=== PATIENT | male | born 1970 | race Asian ===

== ENCOUNTER 2024-04-07 16:57 | Inpatient (IN) | payer OTHER ==
[~2024-04-07] VITALS: Ht 172.7 cm; Wt 77.0 kg
[2024-04-07] MEDS ORDERED: GLYB-145 PO (17:50)
[2024-04-07] MEDS ORDERED: AMLO-257 PO (17:50)
[2024-04-07] MEDS ORDERED: OLAN5TAB52 PO (17:50)
[2024-04-07] MEDS ORDERED: VENL-66 PO (17:50)
[2024-04-07 18:07] LABS: BASOPHILS % (AUTO) 0.3 % (0.0-2.0); EOSINOPHILS % (AUTO) 0.2 % (1.0-6.0); HEMATOCRIT 50.3 % (41-53); HEMOGLOBIN 16.6 g/dL (13.5-17.5); LYMPHOCYTES # (AUTO) 2.4 K/uL (1.0-4.8); MEAN CORPUSCULAR HEMOGLOBIN 30.7 pg (26.0-34.0); MEAN CORPUSCULAR VOLUME 93 fL (80-100); MONOCYTES # (AUTO) 0.5 K/uL (0.1-1.0); MONOCYTES % (AUTO) 6.6 % (2.0-9.0); NEUTROPHILS # (AUTO) 4.3 K/uL (1.8-7.7); NEUTROPHILS % (AUTO) 59.9 % (40.0-70.0); PLATELET COUNT (AUTO) 250 K/uL (150-450); RED BLOOD CELL COUNT(AUTO) 5.41 MIL/uL (4.50-5.90); RED CELL DISTRIBUTION WIDTH 13.3 % (11.5-14.5); WHITE BLOOD COUNT (AUTO) 7.2 K/uL (4.5-11.0)
[2024-04-07 18:11] LABS: COVID AG,FIA SOURCE NASAL SWAB
[2024-04-07 18:20] LABS: ANION GAP 10 mmol/L (8-16); CALCIUM, TOTAL 9.2 mg/dL (8.8-10.5); CARBON DIOXIDE 29 mmol/L (22-29); CHLORIDE 103 mmol/L (98-107); CREATININE 1.01 mg/dL (0.60-1.30); GLOMERULAR FILTR. RATE CALC > 60 mL/min (>60); GLUCOSE,RANDOM 133 mg/dL (70-110); POTASSIUM 4.5 mmol/L (3.5-5.1); SODIUM SERUM 142 mmol/L (136-145); UREA NITROGEN, BLOOD 25 mg/dL (7-18)
[2024-04-07 18:23] LABS: ALCOHOL, BLOOD (SERUM) < 3 mg/dL (0-10)
[2024-04-07] MEDS ORDERED: ONDANSETRON HCL 4 MG/2 ML VIAL IVP PRN (18:30)
[2024-04-07 18:51] LABS: SARS-COV2 (COVID) ANTIGEN,FIA Negative (Negative)
[2024-04-07] MEDS: AmLODIPine BESYLATE 5 MG TABLET PO SCH (20:09)
[2024-04-07] MEDS: DOCUSATE SODIUM 100 MG CAPSULE PO SCH (20:10)
[2024-04-07 21:21] VITALS: BP 144/80; PULSE 50; RESP 18; TEMP 98.2; O2SAT 96
[2024-04-07 21:55] LABS: GLUCOMETER DEV NAME(LOC) 6N.2B; GLUCOSE,POINT OF CARE 198 MG/DL (70-110)
[2024-04-07] MEDS: ZOLPIDEM TARTRATE 5 MG TABLET PO PRN (22:08)
[2024-04-07] MEDS: HEPARIN SODIUM,PORCINE 5,000 UNITS/ML VIAL SQ SCH (22:08)
[2024-04-08] MEDS: ZOLPIDEM TARTRATE 5 MG TABLET PO ONE (00:30)
[2024-04-08 02:16] LABS: ALCOHOL, URINE DRUG SCREEN NEGATIVE (NEGATIVE); AMPHET/METH SCREEN,URINE NEGATIVE (NEGATIVE); BARBITURATE SCREEN, URINE NEGATIVE (NEGATIVE); BENZODIAZEPINES SCREEN,URINE NEGATIVE (NEGATIVE); CANNABINOID SCREEN,URINE NEGATIVE (NEGATIVE); COCAINE SCREEN,URINE NEGATIVE (NEGATIVE); METHADONE SCREEN, URINE NEGATIVE (NEGATIVE); OPIATE SCREEN,URINE NEGATIVE (NEGATIVE); PHENCYCLIDINE SCREEN,URINE NEGATIVE (NEGATIVE)
[2024-04-08 05:24] VITALS: BP 139/90; PULSE 51; RESP 18; TEMP 97.8; O2SAT 97
[2024-04-08] MEDS: MAGNESIUM HYDROXIDE SUSPENSION 30 ML UDCUP PO PRN (05:26)
[2024-04-08 08:25] VITALS: BP 135/74; PULSE 78; RESP 18; TEMP 98.2; O2SAT 100
[2024-04-08] MEDS: GlyBURIDE 5 MG TABLET PO SCH (08:40)
[2024-04-08] MEDS: PANTOPRAZOLE SODIUM 40 MG DR TABLET PO SCH (08:40)
[2024-04-08] MEDS ORDERED: DEXTROSE 50%-WATER 25 GM/50 ML SYRINGE IVP PRN (11:00)
[2024-04-08] MEDS: BISACODYL 10 MG RECTAL RECTAL SUPPOSITORY PR PRN (17:02)
[2024-04-08 19:40] VITALS: BP 132/75; PULSE 53; RESP 18; TEMP 98.2; O2SAT 98
[2024-04-08] MEDS: ACETAMINOPHEN 325 MG TABLET PO PRN (20:45)
[2024-04-08] MEDS: OLANZapine 7.5 MG TABLET PO SCH (20:46)
[2024-04-08] MEDS: INSULIN LISPRO 100 UNITS/ML SQ PRN (20:49)
[2024-04-08 22:41] LABS: GLUCOMETER DEV NAME(LOC) 6N.2B; GLUCOSE,POINT OF CARE 78 MG/DL (70-110)
[2024-04-08 22:41] LABS: GLUCOMETER DEV NAME(LOC) 6N.2B; GLUCOSE,POINT OF CARE 144 MG/DL (70-110)
[2024-04-09 04:53] VITALS: BP 162/92; PULSE 48; RESP 18; TEMP 97.7; O2SAT 98
[2024-04-09 05:40] VITALS: BP 160/96; PULSE 48; RESP 18; O2SAT 97
[2024-04-09 06:56] LABS: GLUCOMETER DEV NAME(LOC) 6N.1B; GLUCOSE,POINT OF CARE 88 MG/DL (70-110)
[2024-04-09 08:09] VITALS: BP 157/98; PULSE 55; RESP 18; TEMP 97.6; O2SAT 99
[2024-04-09 19:31] VITALS: BP 114/98; PULSE 53; RESP 18; TEMP 97.6; O2SAT 97
[2024-04-09 19:35] VITALS: BP 114/78; PULSE 53; RESP 18; TEMP 97.6; O2SAT 97
[2024-04-09 20:37] LABS: GLUCOMETER DEV NAME(LOC) 6N.1B; GLUCOSE,POINT OF CARE 115 MG/DL (70-110)
[2024-04-09 20:37] LABS: GLUCOMETER DEV NAME(LOC) 6S.2; GLUCOSE,POINT OF CARE 126 MG/DL (70-110)
[2024-04-09 21:10] VITALS: BP 126/79; PULSE 51; RESP 18; O2SAT 98
[2024-04-10 03:43] VITALS: BP 137/88; PULSE 50; RESP 18; TEMP 97.8; O2SAT 98
[2024-04-10 08:04] VITALS: BP 127/79; PULSE 47; RESP 17; TEMP 97.6; O2SAT 96
[2024-04-10 20:37] VITALS: BP 125/82; PULSE 51; RESP 18; TEMP 98.3; O2SAT 98
[2024-04-11 05:58] VITALS: BP 142/91; PULSE 51; RESP 18; TEMP 97.9; O2SAT 96
[2024-04-11 06:11] LABS: GLUCOMETER DEV NAME(LOC) 6N.2B; GLUCOSE,POINT OF CARE 88 MG/DL (70-110)
[2024-04-11 06:11] LABS: GLUCOMETER DEV NAME(LOC) 6N.2B; GLUCOSE,POINT OF CARE 185 MG/DL (70-110)
[2024-04-11 06:11] LABS: GLUCOMETER DEV NAME(LOC) 6N.2B; GLUCOSE,POINT OF CARE 140 MG/DL (70-110)
[2024-04-11 06:11] LABS: GLUCOMETER DEV NAME(LOC) 6N.2B; GLUCOSE,POINT OF CARE 114 MG/DL (70-110)
[2024-04-11 08:00] VITALS: BP 143/84; PULSE 52; RESP 18; TEMP 97.9; O2SAT 99
[2024-04-11 10:51] LABS: GLUCOMETER DEV NAME(LOC) 6N.1B; GLUCOSE,POINT OF CARE 152 MG/DL (70-110)
[2024-04-11 10:51] LABS: GLUCOMETER DEV NAME(LOC) 6N.1B; GLUCOSE,POINT OF CARE 170 MG/DL (70-110)
[2024-04-11] MEDS ORDERED: AMLO-257 PO (12:20)
[2024-04-11] MEDS ORDERED: OLAN7.5T22 PO (12:21)
[2024-04-11] MEDS ORDERED: ACET-2247 PO (12:22)
[2024-04-11] MEDS ORDERED: MAGN-169 PO (12:23)
[2024-04-11] MEDS ORDERED: INSU100V SQ (12:30)
[2024-04-11 18:25] LABS: GLUCOMETER DEV NAME(LOC) 6N.2B; GLUCOSE,POINT OF CARE 136 MG/DL (70-110)
[2024-04-11 18:31] LABS: GLUCOMETER DEV NAME(LOC) 6S.2; GLUCOSE,POINT OF CARE 210 MG/DL (70-110)
[2024-04-12] MEDS ORDERED: AmLODIPine BESYLATE 5 MG TABLET PO SCH (09:00)
== END 2024-04-11 19:40 | DRG 310 ==
LOC: EMS 16:57 → EDH 18:34 → 6S 21:15
PROVIDERS: ADMIT Internal Medicine; ATTEND Internal Medicine
DX: R00.1 Bradycardia, unspecified (principal); E11.9 Type 2 diabetes mellitus without complications; I10 Essential (primary) hypertension; F25.0 Schizoaffective disorder, bipolar type; Z20.822 Contact with and (suspected) exposure to COVID-19
CPT/HCPCS: 80048; 80307; 82962; 85025; 99285; G0480; J1644